=== PATIENT | male | born 1990 | race Caucasian/White ===

== ENCOUNTER 2016-08-16 14:42 | Emergency (ER) | payer MEDICAID, SELFPAY ==
[2016-08-16] MEDS ORDERED: ACETAMINOPHEN 325 MG TAB As Ordered ONE (16:47)
[2016-08-16 17:40] LABS: BASO % 0.6 % (0.0-1.0); EOS # 0.3 K/mm3 (0.0-0.50); EOS % 4.4 % (0.0-3.0); LARGE UNSTAINED CELL # 0.2 K/mm3 (0.0-0.4); LARGE UNSTAINED CELL % 2.4 % (0.0-4.0); LYMPH % 30.3 % (24.0-44.0); MEAN CORPUSCULAR HEMOGLOBIN 28.8 pg (27.0-33.0); MEAN CORPUSCULAR HGB CONC 33.4 g/dl (32.0-36.5); MEAN CORPUSCULAR VOLUME 86.1 fl (80.0-96.0); MONO # 0.5 K/mm3 (0.0-0.8); MONO % 8.2 % (0.0-5.0); NEUTROPHILS # 3.4 K/mm3 (1.8-7.7); NEUTROPHILS % 54.2 % (36.0-66.0); PLATELET COUNT, AUTOMATED 208 k/mm3 (150-450); RED CELL DISTRIBUTION WIDTH 12.3 % (11.5-14.5); WHITE BLOOD COUNT 6.2 K/mm3 (4.0-10.0)
[2016-08-16 17:45] LABS: ANION GAP 7 MEQ/L (8-16); BLOOD UREA NITROGEN 10 MG/DL (7-18); CALCIUM LEVEL 8.6 MG/DL (8.5-10.1); CARBON DIOXIDE LEVEL 31 MEQ/L (21-32); CHLORIDE LEVEL 102 MEQ/L (98-107); CREATININE FOR GFR 0.81 MG/DL (0.70-1.30); GLOMERULAR FILTRATION RATE > 60.0 (>60); GLUCOSE, FASTING 113 MG/DL (70-105); POTASSIUM SERUM 4.2 MEQ/L (3.5-5.1); SODIUM LEVEL 140 MEQ/L (136-145)
--- NOTE | 2016-08-16 18:10 | EDDOCDS ---
Physician Documentation [facility] Name: Ryan Chahal Age: 25 yrs Sex: Male : 1990 Arrival Date: 08/16/2016 Time: 14:42 Bed PD Private MD: NO PRIMARY PHYSICIAN, . Disposition: 08/16/16 17:53 Discharged to Home/Self Care. Impression: Acute upper respiratory infection, unspecified, Dental caries, Nausea and vomiting - viral illness, Diarrhea, unspecified. - Condition is Stable. - Discharge Instructions: Nausea and Vomiting, Upper Respiratory Infection, Adult. - Prescriptions for Amoxicillin 875 mg Oral Tablet - take 1 tablet by ORAL route every 12 hours for 10 days; 20 tablet. ZOFRAN ODT 4 mg Oral - dissolve 1 tablet by ORAL route every 8 hours As needed do not chew, do not swallow whole; 10 tablet. - Medication Reconciliation, Local Pharmacy Hours, Referral List Call for Appointment form. - [facility]; When: Call to arrange an appointment; Reason: Recheck today's complaints, To establish care. Follow up: Emergency Department; When: As needed; Reason: Fever > 102F, Trouble breathing, Worsening of conditions. - Problem is new. - Symptoms have improved. Historical: - Allergies: no known allergies; - Home Meds: 1. none - PMHx: Allergies, Seasonal; - PSHx: skin graft right wrist; - Social history: Smoking status: Patient uses tobacco products, light tobacco smoker. No barriers to communication noted, The patient speaks fluent Liberian. - Family history: Not pertinent. - : The pt / caregiver states he / she is not on anticoagulants. Home medication list is obtained from the patient. - Exposure Risk Screening:: None identified. Vital Signs: 08/16 14:45 BP 137 / 77; Pulse 116; Resp 18 S; Temp 97.8(O); Pulse Ox 98% on R/A; Weight 115.67 kg gr2 / 255.01 lbs (R); Height 5 ft. 10 in. (177.80 cm) (R); Pain 3/10; 16:43 BP 137 / 70; Pulse 81; Resp 22; Temp 101.0(TE); Pulse Ox 96% on R/A; kcs 18:05 BP 148 / 84; Pulse 93; Resp 20; Temp 98.5(O); Pulse Ox 97% ; mk4 14:45 Body Mass Index 36.59 (115.67 kg, 177.80 cm) gr2 MDM: 16:46 Acetaminophen Tablet 975 mg PO once ordered. kcs 17:03 Obtain sample by nasopharyngeal swab ordered. ar2 17:04 CBC with Diff Ordered. EDMS 17:04 MED Profile Ordered. EDMS 17:04 -Influenza A&B Rapid Antigen - Nose Ordered. EDMS 17:31 Financial registration complete. gjb 17:45 CBC with Diff Reviewed. ar2 17:45 -Influenza A&B Rapid Antigen - Nose Reviewed. ar2 17:51 MED Profile Reviewed. ar2 Administered Medications: 16:50 Drug: Acetaminophen 975 mg [acetaminophen 325 mg tablet (3 tabs)] Route: PO; kcs Signatures: Dispatcher [employer] Pamella Roblero RN RN kcs Scott, Debra, RN RN dls Robertshaw, Aaron, PA-C PA-Ce ar2 Pau Moreno RN RN 4 Dee Carrasco [facility] MTDD
--- NOTE | 2016-08-16 18:10 | EDDOCDS ---
Nurse's Notes [facility] Name: Ryan Chahal Age: 25 yrs Sex: Male : 1990 Arrival Date: 08/16/2016 Time: 14:42 Bed PD Private MD: NO PRIMARY PHYSICIAN, . Diagnosis: Acute upper respiratory infection, unspecified;Dental caries;Nausea and vomiting-viral illness;Diarrhea, unspecified Presentation: 08/16 14:48 Presenting complaint: Patient states: Pt presents with headaches vomiting and diarrhea dls body aches x 4 days. Adult Sepsis Screening: The patient does not have new or worsening altered mentation. Patient's respiratory rate is less than 22. Systolic blood pressure is greater than 100. Patient has a qSOFA score of 0- Negative Sepsis Screen. Suicide/Homicide risk assessment- the patient denies having any suicidal and/or homicidal ideations and does not present with any other emotional, behavioral or mental health complaints. Status: Patient is not a service supervisor or dependent. Transition of care: patient was not received from another setting of care. 14:48 Acuity: TU Level 4 dls 14:48 Method Of Arrival: Walkin/Carried/Asstd dls Triage Assessment: 14:50 General: Appears uncomfortable, Behavior is cooperative. Pain: Pain currently is 6 out dls of 10 on a pain scale. HIV screening NA for this visit Offered previously. Historical: - Allergies: no known allergies; - Home Meds: 1. none - PMHx: Allergies, Seasonal; - PSHx: skin graft right wrist; - Social history: Smoking status: Patient uses tobacco products, light tobacco smoker. No barriers to communication noted, The patient speaks fluent Yakut. - Family history: Not pertinent. - : The pt / caregiver states he / she is not on anticoagulants. Home medication list is obtained from the patient. - Exposure Risk Screening:: None identified. Screenin:05 Screening information is obtained from the patient. Fall risk: No risks identified. mk4 Assistance ADL's: requires no assistance with activities of daily living. Abuse/DV Screen: The patient / caregiver reports he/she is: not in a situation that causes fear, pain or injury. Nutritional screening: No deficits noted. Advance Directives: Currently, there is no health care proxy. There is no active DNR order. There is no living will. There is no Power of Area Secretary. Advance directive information has not previously been placed in an [facility] medical record. Further advance directive information is declined. home support is adequate. Assessment: 16:52 Reassessment: when brought into triage room - patient stated he was burning up - kcs patient has wool hat, hoodie and sweatshirt on - told to remove - vital signs repeated and provider notified - order received. Patient states even his arms and legs hurt. Coughing and has been vomiting.. 18:05 Reassessment: Patient states feeling better. Patient states symptoms have improved. mk4 General: Appears in no apparent distress. Respiratory: Airway is patent Respiratory effort is even. Derm: Skin is intact, is healthy with good turgor, Skin is pink, warm & dry. Vital Signs: 14:45 BP 137 / 77; Pulse 116; Resp 18 S; Temp 97.8(O); Pulse Ox 98% on R/A; Weight 115.67 kg gr2 (R); Height 5 ft. 10 in. (177.80 cm) (R); Pain 3/10; 16:43 BP 137 / 70; Pulse 81; Resp 22; Temp 101.0(TE); Pulse Ox 96% on R/A; kcs 18:05 BP 148 / 84; Pulse 93; Resp 20; Temp 98.5(O); Pulse Ox 97% ; mk4 14:45 Body Mass Index 36.59 (115.67 kg, 177.80 cm) gr2 Vitals: 14:45 Log In Time: August 16, 2016 at 14:45. gr2 ED Course: 14:44 Patient visited by Lorenzo Liu. gr2 14:44 NO PRIMARY PHYSICIAN, . is Private Physician. gr2 14:44 Patient moved to Waiting gr2 14:46 Patient visited by Lorenzo Liu. gr2 14:46 Patient moved to Pre RCE gr2 14:49 Triage Initiated dls 16:36 Patient moved to Triage 1 kcs 16:45 Patient visited by Pau Moreno RN. mk4 16:58 Negrito Petersen PA-C is PHCP. ar2 16:58 John Jordan MD is Attending Physician. ar2 16:58 Patient visited by Negrito Petersen PA-C. ar2 17:09 MED Profile Sent. kcs 17:09 CBC with Diff Sent. kcs 17:10 -Influenza A&B Rapid Antigen - Nose Sent. kcs 17:15 Patient moved to ct3 17:51 [facility] is Referral Physician. ar2 18:05 The patient / caregiver is instructed regarding the plan of care and ED course. mk4 18:05 No IV's were initiated during this patient's visit. No procedures done that require mk4 assistance. Administered Medications: 16:50 Drug: Acetaminophen 975 mg [acetaminophen 325 mg tablet (3 tabs)] Route: PO; kcs Order Results: Lab Order: -Influenza A&B Rapid Antigen - Nose; SPEC'M 08/16/16 17:09 Test: INFLUENZA A RAPID SCR by ICA; Value: INFLUENZA A RESULTS NEGATIVE; Status: F Test: INFLUENZA A RAPID SCR by ICA; Value: Comments:; Status: F Test: INFLUENZA B RAPID SCR by ICA; Value: INFLUENZA B RESULTS NEGATIVE; Status: F Test Note: ; The Influenza test is a direct rapid immunoassay for the qualitative detection of Influenza viral antigen. Cell culture (Viral Culture) testing should be considered to confirm NEGATIVE results and to assist in detecting other viruses that can provide similar clinical symptoms. Please contact the lab within 24 hours ([phone]) if confirmatory testing is desired. Lab Order: CBC with Diff; SPEC'M 08/16/16 17:09 Test: WHITE BLOOD COUNT; Value: 6.2; Range: 4.0-10.0; Units: K/mm3; Status: F Test: RED BLOOD COUNT; Value: 5.22; Range: 4.30-6.10; Units: M/mm3; Status: F Test: HEMOGLOBIN; Value: 15.0; Range: 14.0-18.0; Units: g/dl; Status: F Test: HEMATOCRIT; Value: 44.9; Range: 42.0-52.0; Units: %; Status: F Test: MEAN CORPUSCULAR VOLUME; Value: 86.1; Range: 80.0-96.0; Units: fl; Status: F Test: MEAN CORPUSCULAR HEMOGLOBIN; Value: 28.8; Range: 27.0-33.0; Units: pg; Status: F Test: MEAN CORPUSCULAR HGB CONC; Value: 33.4; Range: 32.0-36.5; Units: g/dl; Status: F Test: RED CELL DISTRIBUTION WIDTH; Value: 12.3; Range: 11.5-14.5; Units: %; Status: F Test: PLATELET COUNT, AUTOMATED; Value: 208; Range: 150-450; Units: k/mm3; Status: F Test: NEUTROPHILS %; Value: 54.2; Range: 36.0-66.0; Units: %; Status: F Test: LYMPH %; Value: 30.3; Range: 24.0-44.0; Units: %; Status: F Test: MONO %; Value: 8.2; Range: 0.0-5.0; Abnormal: Above high normal; Units: %; Status: F Test: EOS %; Value: 4.4; Range: 0.0-3.0; Abnormal: Above high normal; Units: %; Status: F Test: BASO %; Value: 0.6; Range: 0.0-1.0; Units: %; Status: F Test: LARGE UNSTAINED CELL %; Value: 2.4; Range: 0.0-4.0; Units: %; Status: F Test: NEUTROPHILS #; Value: 3.4; Range: 1.8-7.7; Units: K/mm3; Status: F Test: LYMPH #; Value: 2.0; Range: 1.5-6.5; Units: K/mm3; Status: F Test: MONO #; Value: 0.5; Range: 0.0-0.8; Units: K/mm3; Status: F Test: EOS #; Value: 0.3; Range: 0.0-0.50; Units: K/mm3; Status: F Test: BASO #; Value: 0.0; Range: 0.0-0.2; Units: K/mm3; Status: F Test: LARGE UNSTAINED CELL #; Value: 0.2; Range: 0.0-0.4; Units: K/mm3; Status: F Lab Order: MED Profile; SPEC'M 08/16/16 17:09 Test: GLUCOSE, FASTING; Value: 113; Range: 70-105; Abnormal: Above high normal; Units: MG/DL; Status: F Test: BLOOD UREA NITROGEN; Value: 10; Range: 7-18; Units: MG/DL; Status: F Test: CREATININE FOR GFR; Value: 0.81; Range: 0.70-1.30; Units: MG/DL; Status: F Test: GLOMERULAR FILTRATION RATE; Value: > 60.0; Range: >60; Status: F Test: SODIUM LEVEL; Value: 140; Range: 136-145; Units: MEQ/L; Status: F Test: POTASSIUM SERUM; Value: 4.2; Range: 3.5-5.1; Units: MEQ/L; Status: F Test: CHLORIDE LEVEL; Value: 102; Range: 98-107; Units: MEQ/L; Status: F Test: CARBON DIOXIDE LEVEL; Value: 31; Range: 21-32; Units: MEQ/L; Status: F Test: ANION GAP; Value: 7; Range: 8-16; Abnormal: Below low normal; Units: MEQ/L; Status: F Test: CALCIUM LEVEL; Value: 8.6; Range: 8.5-10.1; Units: MG/DL; Status: F Test Note: ; Units are mL/min/1.73 m2 Chronic Kidney Disease Staging per NKF: Stage I & II GFR >=60 Normal to Mildly Decreased Stage III GFR 30-59 Moderately Decreased Stage IV GFR 15-29 Severely Decreased Stage V GFR <15 Very Little GFR Left ESRD GFR <15 on APPRENTICE STYLIST Outcome: 17:53 Discharge ordered by Provider. ar2 18:05 Discharge Assessment: Patient awake, alert and oriented x 3. No cognitive and/or mk4 functional deficits noted. Patient verbalized understanding of disposition instructions. Patient awake and alert. patient administered narcotics - no. The following High Risk Discharge criteria are identified: None. Discharged to home ambulatory. Condition: good Condition: stable. No special radiology studies were completed. Property sent home with patient. 18:09 Patient left the ED. mk4 Signatures: Pamella Torres, RN Buffy Malik RN RN dls Robertshaw, Aaron, PA-C PA-C ar2 Melany Smith, DOC LEAD TECHNICIAN ct3 Lorenzo Liu gr2 Pau Moreno RN RN mk4 MTDD
--- NOTE | 2016-08-18 19:10 | EDDOCDS ---
Nurse's Notes [facility] Name: Ryan Chahal Age: 25 yrs Sex: Male : 1990 Arrival Date: 08/16/2016 Time: 14:42 Bed PD Private MD: NO PRIMARY PHYSICIAN, . Diagnosis: Acute upper respiratory infection, unspecified;Dental caries;Nausea and vomiting-viral illness;Diarrhea, unspecified Presentation: 08/16 14:48 Presenting complaint: Patient states: Pt presents with headaches vomiting and diarrhea dls body aches x 4 days. Adult Sepsis Screening: The patient does not have new or worsening altered mentation. Patient's respiratory rate is less than 22. Systolic blood pressure is greater than 100. Patient has a qSOFA score of 0- Negative Sepsis Screen. Suicide/Homicide risk assessment- the patient denies having any suicidal and/or homicidal ideations and does not present with any other emotional, behavioral or mental health complaints. Status: Patient is not a service coordinator or dependent. Transition of care: patient was not received from another setting of care. 14:48 Acuity: TU Level 4 dls 14:48 Method Of Arrival: Walkin/Carried/Asstd dls Triage Assessment: 14:50 General: Appears uncomfortable, Behavior is cooperative. Pain: Pain currently is 6 out dls of 10 on a pain scale. HIV screening NA for this visit Offered previously. Historical: - Allergies: no known allergies; - Home Meds: 1. none - PMHx: Allergies, Seasonal; - PSHx: skin graft right wrist; - Social history: Smoking status: Patient uses tobacco products, light tobacco smoker. No barriers to communication noted, The patient speaks fluent Maori. - Family history: Not pertinent. - : The pt / caregiver states he / she is not on anticoagulants. Home medication list is obtained from the patient. - Exposure Risk Screening:: None identified. Screenin:05 Screening information is obtained from the patient. Fall risk: No risks identified. mk4 Assistance ADL's: requires no assistance with activities of daily living. Abuse/DV Screen: The patient / caregiver reports he/she is: not in a situation that causes fear, pain or injury. Nutritional screening: No deficits noted. Advance Directives: Currently, there is no health care proxy. There is no active DNR order. There is no living will. There is no Power of Aitchbone Breaker. Advance directive information has not previously been placed in an [facility] medical record. Further advance directive information is declined. home support is adequate. Assessment: 16:52 Reassessment: when brought into triage room - patient stated he was burning up - kcs patient has wool hat, hoodie and sweatshirt on - told to remove - vital signs repeated and provider notified - order received. Patient states even his arms and legs hurt. Coughing and has been vomiting.. 18:05 Reassessment: Patient states feeling better. Patient states symptoms have improved. mk4 General: Appears in no apparent distress. Respiratory: Airway is patent Respiratory effort is even. Derm: Skin is intact, is healthy with good turgor, Skin is pink, warm & dry. Vital Signs: 14:45 BP 137 / 77; Pulse 116; Resp 18 S; Temp 97.8(O); Pulse Ox 98% on R/A; Weight 115.67 kg gr2 (R); Height 5 ft. 10 in. (177.80 cm) (R); Pain 3/10; 16:43 BP 137 / 70; Pulse 81; Resp 22; Temp 101.0(TE); Pulse Ox 96% on R/A; kcs 18:05 BP 148 / 84; Pulse 93; Resp 20; Temp 98.5(O); Pulse Ox 97% ; mk4 14:45 Body Mass Index 36.59 (115.67 kg, 177.80 cm) gr2 Vitals: 14:45 Log In Time: August 16, 2016 at 14:45. gr2 ED Course: 14:44 Patient visited by Lorenzo Liu. gr2 14:44 NO PRIMARY PHYSICIAN, . is Private Physician. gr2 14:44 Patient moved to Waiting gr2 14:46 Patient visited by Lorenzo Liu. gr2 14:46 Patient moved to Pre RCE gr2 14:49 Triage Initiated dls 16:36 Patient moved to Triage 1 kcs 16:45 Patient visited by Pau Moreno RN. mk4 16:58 Negrito Petersen PA-C is PHCP. ar2 16:58 John Jordan MD is Attending Physician. ar2 16:58 Patient visited by Negrito Petersen PA-C. ar2 17:09 MED Profile Sent. kcs 17:09 CBC with Diff Sent. kcs 17:10 -Influenza A&B Rapid Antigen - Nose Sent. kcs 17:15 Patient moved to PD ct3 17:51 [facility] is Referral Physician. ar2 18:05 The patient / caregiver is instructed regarding the plan of care and ED course. mk4 18:05 No IV's were initiated during this patient's visit. No procedures done that require mk4 assistance. 18:22 [facility] Payment Agreement was scanned into [employer] and attached to record. gjb 08/17 14:05 T-Sheet-- Draft Copy was scanned into [employer] and attached to record. gb Administered Medications: 08/16 16:50 Drug: Acetaminophen 975 mg [acetaminophen 325 mg tablet (3 tabs)] Route: PO; kcs 18:09 Follow up: Response: Pain is decreased; Temperature is decreased mk4 Order Results: Lab Order: -Influenza A&B Rapid Antigen - Nose; SPEC'M 08/16/16 17:09 Test: INFLUENZA A RAPID SCR by ICA; Value: INFLUENZA A RESULTS NEGATIVE; Status: F Test: INFLUENZA A RAPID SCR by ICA; Value: Comments:; Status: F Test: INFLUENZA B RAPID SCR by ICA; Value: INFLUENZA B RESULTS NEGATIVE; Status: F Test Note: ; The Influenza test is a direct rapid immunoassay for the qualitative detection of Influenza viral antigen. Cell culture (Viral Culture) testing should be considered to confirm NEGATIVE results and to assist in detecting other viruses that can provide similar clinical symptoms. Please contact the lab within 24 hours ([phone]) if confirmatory testing is desired. Lab Order: CBC with Diff; SPEC'M 08/16/16 17:09 Test: WHITE BLOOD COUNT; Value: 6.2; Range: 4.0-10.0; Units: K/mm3; Status: F Test: RED BLOOD COUNT; Value: 5.22; Range: 4.30-6.10; Units: M/mm3; Status: F Test: HEMOGLOBIN; Value: 15.0; Range: 14.0-18.0; Units: g/dl; Status: F Test: HEMATOCRIT; Value: 44.9; Range: 42.0-52.0; Units: %; Status: F Test: MEAN CORPUSCULAR VOLUME; Value: 86.1; Range: 80.0-96.0; Units: fl; Status: F Test: MEAN CORPUSCULAR HEMOGLOBIN; Value: 28.8; Range: 27.0-33.0; Units: pg; Status: F Test: MEAN CORPUSCULAR HGB CONC; Value: 33.4; Range: 32.0-36.5; Units: g/dl; Status: F Test: RED CELL DISTRIBUTION WIDTH; Value: 12.3; Range: 11.5-14.5; Units: %; Status: F Test: PLATELET COUNT, AUTOMATED; Value: 208; Range: 150-450; Units: k/mm3; Status: F Test: NEUTROPHILS %; Value: 54.2; Range: 36.0-66.0; Units: %; Status: F Test: LYMPH %; Value: 30.3; Range: 24.0-44.0; Units: %; Status: F Test: MONO %; Value: 8.2; Range: 0.0-5.0; Abnormal: Above high normal; Units: %; Status: F Test: EOS %; Value: 4.4; Range: 0.0-3.0; Abnormal: Above high normal; Units: %; Status: F Test: BASO %; Value: 0.6; Range: 0.0-1.0; Units: %; Status: F Test: LARGE UNSTAINED CELL %; Value: 2.4; Range: 0.0-4.0; Units: %; Status: F Test: NEUTROPHILS #; Value: 3.4; Range: 1.8-7.7; Units: K/mm3; Status: F Test: LYMPH #; Value: 2.0; Range: 1.5-6.5; Units: K/mm3; Status: F Test: MONO #; Value: 0.5; Range: 0.0-0.8; Units: K/mm3; Status: F Test: EOS #; Value: 0.3; Range: 0.0-0.50; Units: K/mm3; Status: F Test: BASO #; Value: 0.0; Range: 0.0-0.2; Units: K/mm3; Status: F Test: LARGE UNSTAINED CELL #; Value: 0.2; Range: 0.0-0.4; Units: K/mm3; Status: F Lab Order: MED Profile; TASHA 08/16/16 17:09 Test: GLUCOSE, FASTING; Value: 113; Range: 70-105; Abnormal: Above high normal; Units: MG/DL; Status: F Test: BLOOD UREA NITROGEN; Value: 10; Range: 7-18; Units: MG/DL; Status: F Test: CREATININE FOR GFR; Value: 0.81; Range: 0.70-1.30; Units: MG/DL; Status: F Test: GLOMERULAR FILTRATION RATE; Value: > 60.0; Range: >60; Status: F Test: SODIUM LEVEL; Value: 140; Range: 136-145; Units: MEQ/L; Status: F Test: POTASSIUM SERUM; Value: 4.2; Range: 3.5-5.1; Units: MEQ/L; Status: F Test: CHLORIDE LEVEL; Value: 102; Range: 98-107; Units: MEQ/L; Status: F Test: CARBON DIOXIDE LEVEL; Value: 31; Range: 21-32; Units: MEQ/L; Status: F Test: ANION GAP; Value: 7; Range: 8-16; Abnormal: Below low normal; Units: MEQ/L; Status: F Test: CALCIUM LEVEL; Value: 8.6; Range: 8.5-10.1; Units: MG/DL; Status: F Test Note: ; Units are mL/min/1.73 m2 Chronic Kidney Disease Staging per NKF: Stage I & II GFR >=60 Normal to Mildly Decreased Stage III GFR 30-59 Moderately Decreased Stage IV GFR 15-29 Severely Decreased Stage V GFR <15 Very Little GFR Left ESRD GFR <15 on STATOR WINDER Outcome: 17:53 Discharge ordered by Provider. ar2 18:05 Discharge Assessment: Patient awake, alert and oriented x 3. No cognitive and/or mk4 functional deficits noted. Patient verbalized understanding of disposition instructions. Patient awake and alert. patient administered narcotics - no. The following High Risk Discharge criteria are identified: None. Discharged to home ambulatory. Condition: good Condition: stable. No special radiology studies were completed. Property sent home with patient. 18:09 Patient left the ED. mk4 Signatures: Pamella Torres RN RN kcs Scott, Debra, RN RN dls Barnhardt, Gloria, Negrito Watt PASeverino PA-C ar2 Melany Smith, HVAC JOURNEYMAN HVAC JOURNEYMAN ct3 Lorenzo Liu gr2 Pau Moreno, RN RN mk4 Dee Carrasco Chart Complete MTDD
--- NOTE | 2016-08-18 19:10 | EDDOCDS ---
Physician Documentation [facility] Name: Ryan Chahal Age: 25 yrs Sex: Male : 1990 Arrival Date: 08/16/2016 Time: 14:42 Bed PD Private MD: NO PRIMARY PHYSICIAN, . Disposition: 08/16/16 17:53 Discharged to Home/Self Care. Impression: Acute upper respiratory infection, unspecified, Dental caries, Nausea and vomiting - viral illness, Diarrhea, unspecified. - Condition is Stable. - Discharge Instructions: Nausea and Vomiting, Upper Respiratory Infection, Adult. - Prescriptions for Amoxicillin 875 mg Oral Tablet - take 1 tablet by ORAL route every 12 hours for 10 days; 20 tablet. ZOFRAN ODT 4 mg Oral - dissolve 1 tablet by ORAL route every 8 hours As needed do not chew, do not swallow whole; 10 tablet. - Medication Reconciliation, Local Pharmacy Hours, Referral List Call for Appointment form. - [facility]; When: Call to arrange an appointment; Reason: Recheck today's complaints, To establish care. Follow up: Emergency Department; When: As needed; Reason: Fever > 102F, Trouble breathing, Worsening of conditions. - Problem is new. - Symptoms have improved. Historical: - Allergies: no known allergies; - Home Meds: 1. none - PMHx: Allergies, Seasonal; - PSHx: skin graft right wrist; - Social history: Smoking status: Patient uses tobacco products, light tobacco smoker. No barriers to communication noted, The patient speaks fluent Guamanian. - Family history: Not pertinent. - : The pt / caregiver states he / she is not on anticoagulants. Home medication list is obtained from the patient. - Exposure Risk Screening:: None identified. Vital Signs: 08/16 14:45 BP 137 / 77; Pulse 116; Resp 18 S; Temp 97.8(O); Pulse Ox 98% on R/A; Weight 115.67 kg gr2 / 255.01 lbs (R); Height 5 ft. 10 in. (177.80 cm) (R); Pain 3/10; 16:43 BP 137 / 70; Pulse 81; Resp 22; Temp 101.0(TE); Pulse Ox 96% on R/A; kcs 18:05 BP 148 / 84; Pulse 93; Resp 20; Temp 98.5(O); Pulse Ox 97% ; mk4 14:45 Body Mass Index 36.59 (115.67 kg, 177.80 cm) gr2 MDM: 16:46 Acetaminophen Tablet 975 mg PO once ordered. kcs 17:03 Obtain sample by nasopharyngeal swab ordered. ar2 17:04 CBC with Diff Ordered. EDMS 17:04 MED Profile Ordered. EDMS 17:04 -Influenza A&B Rapid Antigen - Nose Ordered. EDMS 17:31 Financial registration complete. gjb 17:45 CBC with Diff Reviewed. ar2 17:45 -Influenza A&B Rapid Antigen - Nose Reviewed. ar2 17:51 MED Profile Reviewed. ar2 18:22 [facility] Payment Agreement was scanned into [employer] and attached to record. [facility] 08/17 14:05 T-Sheet-- Draft Copy was scanned into [employer] and attached to record. gb Administered Medications: 08/16 16:50 Drug: Acetaminophen 975 mg [acetaminophen 325 mg tablet (3 tabs)] Route: PO; kcs 18:09 Follow up: Response: Pain is decreased; Temperature is decreased mk4 Signatures: Dispatcher [employer] EDMS Pamella Torres RN RN Buffy Burton RN RN dls Nahomy Melchor, Reg Reg Negrito Mejia PA-C PASeverino ar2 Pau Moreno RN RN Dee Hooks The chart was reviewed and I authenticate all verbal orders and agree with the evaluation and treatment provided.Attachments: 18: [facility] Payment Agreement [facility] 08/17 14:05 T-Sheet-- Draft Copy gb Chart Complete MTDD
--- NOTE | 2016-08-18 19:10 | EDDOCDS ---
Physician Documentation [facility] Name: Ryan Chahal Age: 25 yrs Sex: Male : 1990 Arrival Date: 08/16/2016 Time: 14:42 Bed PD Private MD: NO PRIMARY PHYSICIAN, . Disposition: 08/16/16 17:53 Discharged to Home/Self Care. Impression: Acute upper respiratory infection, unspecified, Dental caries, Nausea and vomiting - viral illness, Diarrhea, unspecified. - Condition is Stable. - Discharge Instructions: Nausea and Vomiting, Upper Respiratory Infection, Adult. - Prescriptions for Amoxicillin 875 mg Oral Tablet - take 1 tablet by ORAL route every 12 hours for 10 days; 20 tablet. ZOFRAN ODT 4 mg Oral - dissolve 1 tablet by ORAL route every 8 hours As needed do not chew, do not swallow whole; 10 tablet. - Medication Reconciliation, Local Pharmacy Hours, Referral List Call for Appointment form. - [facility]; When: Call to arrange an appointment; Reason: Recheck today's complaints, To establish care. Follow up: Emergency Department; When: As needed; Reason: Fever > 102F, Trouble breathing, Worsening of conditions. - Problem is new. - Symptoms have improved. Historical: - Allergies: no known allergies; - Home Meds: 1. none - PMHx: Allergies, Seasonal; - PSHx: skin graft right wrist; - Social history: Smoking status: Patient uses tobacco products, light tobacco smoker. No barriers to communication noted, The patient speaks fluent Marshallese. - Family history: Not pertinent. - : The pt / caregiver states he / she is not on anticoagulants. Home medication list is obtained from the patient. - Exposure Risk Screening:: None identified. Vital Signs: 08/16 14:45 BP 137 / 77; Pulse 116; Resp 18 S; Temp 97.8(O); Pulse Ox 98% on R/A; Weight 115.67 kg gr2 / 255.01 lbs (R); Height 5 ft. 10 in. (177.80 cm) (R); Pain 3/10; 16:43 BP 137 / 70; Pulse 81; Resp 22; Temp 101.0(TE); Pulse Ox 96% on R/A; kcs 18:05 BP 148 / 84; Pulse 93; Resp 20; Temp 98.5(O); Pulse Ox 97% ; mk4 14:45 Body Mass Index 36.59 (115.67 kg, 177.80 cm) gr2 MDM: 16:46 Acetaminophen Tablet 975 mg PO once ordered. kcs 17:03 Obtain sample by nasopharyngeal swab ordered. ar2 17:04 CBC with Diff Ordered. EDMS 17:04 MED Profile Ordered. EDMS 17:04 -Influenza A&B Rapid Antigen - Nose Ordered. EDMS 17:31 Financial registration complete. gjb 17:45 CBC with Diff Reviewed. ar2 17:45 -Influenza A&B Rapid Antigen - Nose Reviewed. ar2 17:51 MED Profile Reviewed. ar2 18:22 [facility] Payment Agreement was scanned into [employer] and attached to record. [facility] 08/17 14:05 T-Sheet-- Draft Copy was scanned into [employer] and attached to record. gb Administered Medications: 08/16 16:50 Drug: Acetaminophen 975 mg [acetaminophen 325 mg tablet (3 tabs)] Route: PO; kcs 18:09 Follow up: Response: Pain is decreased; Temperature is decreased mk4 Signatures: Dispatcher [employer] EDMS Pamella Torres RN RN Buffy Burton RN RN dls Nahomy Melchor, Reg Reg Negrito Mejia PA-C PASeverino ar2 Pau Moreno RN RN Dee Hooks The chart was reviewed and I authenticate all verbal orders and agree with the evaluation and treatment provided.Attachments: 18: [facility] Payment Agreement [facility] 08/17 14:05 T-Sheet-- Draft Copy gb Chart Complete MTDD
== END 2016-08-16 18:09 | disposition home or self-care (01) ==
LOC: M ED 14:42
DX: B34.9 Viral infection, unspecified (principal); R11.2 Nausea with vomiting, unspecified; K02.9 Dental caries, unspecified; R19.7 Diarrhea, unspecified; J30.2 Other seasonal allergic rhinitis; F17.210 Nicotine dependence, cigarettes, uncomplicated

== ENCOUNTER 2017-05-22 08:55 | Emergency (ER) | payer SELFPAY ==
[~2017-05-22] VITALS: Ht 177.8 cm; Wt 120.5 kg
[~2017-05-22 08:55] MED LIST: IBUP80TA PO
[2017-05-22] MEDS ORDERED: NS 1,000 ML IV ONE (09:30)
[2017-05-22] MEDS ORDERED: METOCLOPRAMIDE INJ 10MG/2ML VIAL (J2765) IV ONE (09:30)
[2017-05-22] MEDS ORDERED: KETOROLAC 30 MG/ML VIAL (J1885) IV ONE (09:30)
[2017-05-22] MEDS ORDERED: diphenhydrAMINE INJ 50MG/ML VIAL (J1200) IV ONE (09:30)
[2017-05-22] MEDS ORDERED: PENICILLIN V POTASSIUM 500 MG TAB PO ONE (10:45)
[2017-05-22] MEDS ORDERED: PENI250T57 PO (10:53)
[2017-05-22 11:00] VITALS: BP 131/72
== END 2017-05-22 11:01 | disposition home or self-care (01) ==
LOC: M ED 08:55
DX: J02.0 Streptococcal pharyngitis (principal)
CPT/HCPCS: 87804; 87880; 96361; 96374; 96375; 99284; J1200; J1885; J2765

== ENCOUNTER 2017-05-24 09:55 | Emergency (ER) | payer SELFPAY ==
[~2017-05-24] VITALS: Ht 177.8 cm; Wt 116.8 kg
[2017-05-24 09:55] VITALS: BP 140/76
[~2017-05-24 09:55] MED LIST changes: +PENI250T57 PO
[2017-05-24] MEDS ORDERED: ZOFR4TAB3 PO (11:25)
[2017-05-24] MEDS ORDERED: ONDANSETRON 4 MG ORAL DISINTEGRATING TAB (S0181) PO ONE (11:30)
== END 2017-05-24 11:40 | disposition home or self-care (01) ==
LOC: M ED 09:55
DX: R11.0 Nausea (principal); Z87.891 Personal history of nicotine dependence

== ENCOUNTER 2017-06-01 18:38 | Emergency (ER) | payer SELFPAY ==
[~2017-06-01] VITALS: Ht 177.8 cm; Wt 120.5 kg
[~2017-06-01 18:38] MED LIST changes: +ZOFR4TAB3 PO
[2017-06-01] MEDS ORDERED: NS 1,000 ML IV ONE (19:00)
[2017-06-01 19:17] LABS: BASO # 0.1 10^3/uL (0.0-0.2); BASO % 0.6 % (0.0-1.0); EOS # 0.4 10^3/uL (0.0-0.50); EOS % 3.6 % (0.0-3.0); LYMPH # 2.9 10^3/uL (1.5-6.5); LYMPH % 28.4 % (24.0-44.0); MEAN CORPUSCULAR HEMOGLOBIN 28.6 pg (27.0-33.0); MEAN CORPUSCULAR HGB CONC 33.6 g/dl (32.0-36.5); MEAN CORPUSCULAR VOLUME 85.3 fl (80.0-96.0); MONO # 0.9 10^3/uL (0.0-0.8); MONO % 9.3 % (0.0-5.0); NEUTROPHILS # 5.8 10^3/uL (1.8-7.7); NEUTROPHILS % 57.1 % (36.0-66.0); PLATELET COUNT, AUTOMATED 558 10^3/uL (150-450); WHITE BLOOD COUNT 10.2 10^3/uL (4.0-10.0)
[2017-06-01 19:19] LABS: VENOUS BASE EXCESS 2.4 (-2.0-2.0); VENOUS O2 SATURATION 49.1 % (60.0-80.0); VENOUS PARTIAL PRESSURE CO2 51.9 mmHg (38.0-50.0); VENOUS PARTIAL PRESSURE O2 27.9 mmHg (30.0-50.0); VENOUS STANDARD HCO3 25.2 MEQ/L; VENOUS TOTAL CO2 30.6 MEQ/L (24.0-28.0)
--- NOTE | 2017-06-01 19:21 | REP ---
Clinical: Cough and dyspnea . Comparison: 05/10/2017 . Findings: The mediastinum and cardiac silhouette are stable and within normal limits for portable technique. The lung devi are clear without acute consolidation, effusion, or pneumothorax. Skeletal structures are intact. Impression: No acute cardiopulmonary process appreciated. Signed by Yosi Owens MD 06/01/2017 07:12 P
[2017-06-01 19:27] LABS: ADD MORPHOLOGY? YES; POSITIVE MORPH POS FLAG
[2017-06-01 19:48] LABS: ALBUMIN 3.4 GM/DL (3.2-5.2); ALBUMIN/GLOBULIN RATIO 0.67 (1.00-1.93); ALKALINE PHOSPHATASE 113 U/L (45-117); ALT/SGPT 32 U/L (12-78); ANION GAP 6 MEQ/L (8-16); AST/SGOT 17 U/L (7-37); BILIRUBIN,DIRECT 0.1 MG/DL (0.0-0.2); BILIRUBIN,TOTAL 0.4 MG/DL (0.2-1.0); BLOOD UREA NITROGEN 18 MG/DL (7-18); CALCIUM LEVEL 9.2 MG/DL (8.5-10.1); CARBON DIOXIDE LEVEL 31 MEQ/L (21-32); CHLORIDE LEVEL 101 MEQ/L (98-107); CREATININE FOR GFR 1.08 MG/DL (0.70-1.30); GLOMERULAR FILTRATION RATE > 60.0 (>60); GLUCOSE, FASTING 112 MG/DL (70-105); POTASSIUM SERUM 3.6 MEQ/L (3.5-5.1); SODIUM LEVEL 138 MEQ/L (136-145); TOTAL PROTEIN 8.5 GM/DL (6.4-8.2)
[2017-06-01] MEDS ORDERED: ALBUTEROL SULFATE 2.5 MG/0.5 ML INH NEB SOLN INH ONE (20:15)
[2017-06-01 20:17] LABS: BASOPHILS 1 % (0-4); EOSINOPHILS 2 % (0-5)
[2017-06-01 20:19] LABS: ADD MANUAL DIFFER YES
[2017-06-01 20:39] LABS: CONTROL LINE MONO INT CTR LINE PRESENT
--- NOTE | 2017-06-01 20:48 | ECGEPIP ---
Stationary ECG Study [facility] - ED Test Date: 2017-06-01 Pat Name: ADE SOMERS Department: Room: - Gender: M Triage Assistant: lit : 1990 Requested By: TROY Ley Order Number: [id number] Reading MD: Estrella Gaming Measurements Intervals [place] Rate: 123 P: 51 FL: 145 QRS: 44 QRSD: 90 T: 31 QT: 303 QTc: 435 Interpretive Statements SINUS TACHYCARDIA ABNORMAL RHYTHM ECG NO PRIOR FOR COMPARISON Electronically Signed On 06-01-2017 20:48:14 EST by Estrella Gaming
[2017-06-01 21:04] VITALS: BP 138/85
== END 2017-06-01 21:11 | disposition home or self-care (01) ==
LOC: M ED 18:38
DX: J02.0 Streptococcal pharyngitis (principal); R00.0 Tachycardia, unspecified; R94.31 Abnormal electrocardiogram [ECG] [EKG]

== ENCOUNTER 2018-12-21 15:08 | Emergency (ER) | payer SELFPAY ==
[~2018-12-21] VITALS: Ht 177.8 cm; Wt 135.2 kg
[~2018-12-21 15:08] MED LIST changes: +ZOFR4TAB14 PO; -ZOFR4TAB3 PO
[2018-12-21 15:09] VITALS: BP 132/80
[2018-12-21] MEDS ORDERED: AUGM875T28 PO (15:41)
[2018-12-21] MEDS ORDERED: IBUP-1022 PO (15:41)
== END 2018-12-21 15:48 | disposition home or self-care (01) ==
LOC: M ED 15:08
DX: K02.51 Dental caries on pit and fissure surface limited to enamel (principal); K04.7 Periapical abscess without sinus; Z87.891 Personal history of nicotine dependence

== ENCOUNTER → 2020-05-07 | Outpatient (CLI) | payer OTHER ==
[~2020-05-07] MED LIST changes: +AUGM875T28 PO; +IBUP-1022 PO
[2020-05-07 15:54] LABS: BASO # 0.1 10^3/uL (0.0-0.2); BASO % 0.6 % (0.0-1.0); EOS # 0.4 10^3/uL (0.0-0.5); EOS % 3.8 % (0.0-3.0); HEMATOCRIT 44.5 % (42.0-52.0); HEMOGLOBIN 14.3 g/dl (13.5-17.5); LYMPH # 3.2 10^3/uL (1.5-5.0); LYMPH % 33.6 % (24.0-44.0); MEAN CORPUSCULAR HEMOGLOBIN 27.7 pg (27.0-33.0); MEAN CORPUSCULAR HGB CONC 32.1 g/dl (32.0-36.5); MEAN CORPUSCULAR VOLUME 86.1 fl (80.0-96.0); MONO # 0.8 10^3/uL (0.0-0.8); MONO % 8.3 % (0.0-5.0); NEUTROPHILS # 5.1 10^3/uL (1.5-8.5); NEUTROPHILS % 53.3 % (36.0-66.0); PLATELET COUNT, AUTOMATED 370 10^3/uL (150-450); RED BLOOD COUNT 5.17 10^6/uL (4.30-6.10); WHITE BLOOD COUNT 9.5 10^3/uL (4.0-10.0)
--- NOTE | 2020-05-07 17:01 | REPPI ---
INDICATION: KNEE PAIN. COMPARISON: None. TECHNIQUE: Five views. FINDINGS: Five views of the left knee demonstrate normal bones, joints, and soft tissues. No fracture or subluxation is seen. No opaque foreign body noted. IMPRESSION: Negative left knee series. <Electronically signed by Bryan Batres > 05/07/20 [id number]
[2020-05-07 19:57] LABS: ALBUMIN 3.6 GM/DL (3.2-5.2); ALT/SGPT 29 U/L (12-78); BILIRUBIN,TOTAL 0.3 MG/DL (0.2-1.0); BLOOD UREA NITROGEN 8 MG/DL (7-18); CALCIUM LEVEL 9.1 MG/DL (8.5-10.1); CARBON DIOXIDE LEVEL 29 MEQ/L (21-32); CHLORIDE LEVEL 110 MEQ/L (98-107); CHOLESTEROL LEVEL 168 MG/DL (<200); CHOLESTEROL RISK RATIO 4.097 (<5); CREATININE FOR GFR 0.85 MG/DL (0.70-1.30); FREE T4 1.15 NG/DL (0.76-1.46); GLOMERULAR FILTRATION RATE > 60.0 (>60); GLUCOSE, FASTING 78 MG/DL (70-100); HDL CHOLESTEROL 41 MG/DL (>40); LDL CHOLESTEROL 85 MG/DL (<100); NON-HDL-C 127 MG/DL; SODIUM LEVEL 145 MEQ/L (136-145); TOTAL PROTEIN 6.9 GM/DL (6.4-8.2); TRIGLYCERIDES LEVEL 210 MG/DL (<150)
[2020-05-07 20:48] LABS: HEMOGLOBIN A1c 6.1 %
== END ==
LOC: M PLAIMG 12:44
PROVIDERS: ATTEND Nurse Practitioner Family
DX: I10 Essential (primary) hypertension (principal); Z13.228 Encounter for screening for other metabolic disorders; Z13.220 Encounter for screening for lipoid disorders; M25.562 Pain in left knee

== ENCOUNTER 2020-09-18 16:43 | Emergency (ER) | payer OTHER ==
[~2020-09-18] VITALS: Ht 177.8 cm; Wt 136.1 kg
[2020-09-18] MEDS ORDERED: LISI10TA22 (16:50)
--- NOTE | 2020-09-18 17:36 | REP ---
INDICATION: CHEST PAIN. COMPARISON: Comparison chest x-ray June 01, 2017. TECHNIQUE: Two views.. FINDINGS: The lungs are well inflated and free of infiltrate. The pleural angles are sharp. The heart size is normal. Pulmonary vasculature is not increased. No significant bony abnormality is seen. EKG monitoring electrodes overlie the chest. IMPRESSION: Negative chest x-ray. <Electronically signed by Bryan Batres > 09/18/20 [id number]
[2020-09-18 17:39] LABS: BASO # 0.1 10^3/uL (0.0-0.2); BASO % 0.5 % (0.0-1.0); EOS # 0.3 10^3/uL (0.0-0.5); HEMATOCRIT 43.6 % (42.0-52.0); HEMOGLOBIN 14.2 g/dl (13.5-17.5); LYMPH # 3.1 10^3/uL (1.5-5.0); LYMPH % 29.3 % (24.0-44.0); MEAN CORPUSCULAR HEMOGLOBIN 28.1 pg (27.0-33.0); MEAN CORPUSCULAR HGB CONC 32.6 g/dl (32.0-36.5); MEAN CORPUSCULAR VOLUME 86.3 fl (80.0-96.0); MONO # 0.9 10^3/uL (0.0-0.8); MONO % 8.6 % (2.0-8.0); NEUTROPHILS # 6.2 10^3/uL (1.5-8.5); NEUTROPHILS % 58.1 % (36.0-66.0); PLATELET COUNT, AUTOMATED 360 10^3/uL (150-450); RED BLOOD COUNT 5.05 10^6/uL (4.30-6.10); WHITE BLOOD COUNT 10.7 10^3/uL (4.0-10.0)
[2020-09-18 17:48] LABS: INR 0.91; PROTHROMBIN TIME 12.5 SECONDS (12.5-14.3)
[2020-09-18 17:49] LABS: PARTIAL THROMBOPLASTIN TIME 28.8 SECONDS (24.2-38.5)
[2020-09-18 17:52] LABS: D-DIMER QUANT 350.99 ng/ml (<500)
[2020-09-18 18:09] LABS: ALBUMIN 3.9 GM/DL (3.2-5.2); ALT/SGPT 32 U/L (12-78); BILIRUBIN,DIRECT 0.1 MG/DL (0.0-0.2); BILIRUBIN,TOTAL 0.3 MG/DL (0.2-1.0); BLOOD UREA NITROGEN 12 MG/DL (7-18); CALCIUM LEVEL 9.6 MG/DL (8.5-10.1); CARBON DIOXIDE LEVEL 31 MEQ/L (21-32); CHLORIDE LEVEL 104 MEQ/L (98-107); CK-MB VALUE MASS < 1.0 NG/ML (<3.6); CPK CREATINE PHOSPHOKINASE 187 U/L (39-308); CREATININE FOR GFR 0.71 MG/DL (0.70-1.30); FREE T4 0.97 NG/DL (0.76-1.46); GLOMERULAR FILTRATION RATE > 60.0 (>60); GLUCOSE, FASTING 101 MG/DL (70-100); LIPASE 171 U/L (73-393); MAGNESIUM LEVEL 1.9 MG/DL (1.8-2.4); MB/CK RELATIVE INDEX 0.53 (< OR =4); PHOSPHORUS LEVEL 3.7 MG/DL (2.5-4.9); POTASSIUM SERUM 3.6 MEQ/L (3.5-5.1); SODIUM LEVEL 140 MEQ/L (136-145); TOTAL PROTEIN 7.6 GM/DL (6.4-8.2); TROPONIN I < 0.02 NG/ML (< 0.10)
[2020-09-18 18:29] VITALS: BP 154/89
--- NOTE | 2020-09-19 07:31 | ECGEPIP ---
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
== END 2020-09-18 18:39 | disposition home or self-care (01) ==
LOC: M ED 16:43
DX: R00.2 Palpitations (principal); R00.0 Tachycardia, unspecified; I10 Essential (primary) hypertension; F17.200 Nicotine dependence, unspecified, uncomplicated; Z79.899 Other long term (current) drug therapy

== ENCOUNTER 2020-10-19 19:03 | Emergency (ER) | payer OTHER ==
[~2020-10-19] VITALS: Ht 177.8 cm; Wt 137.2 kg
[~2020-10-19 19:03] MED LIST changes: +LISI10TA22
[2020-10-19] MEDS ORDERED: ALBU8.5H PO (19:14)
--- NOTE | 2020-10-19 20:29 | REPVR ---
PROCEDURE INFORMATION: Exam: XR Chest Exam date and time: 10/19/2020 8:14 PM Age: 30 years old Clinical indication: Cough and dyspnea; Additional info: Dyspnea/cough TECHNIQUE: Imaging protocol: XR of the chest. Views: 1 view. COMPARISON: [place] PORTABLE CHEST X-RAY 06/01/2017 7:03 PM FINDINGS: Lungs: Unremarkable. No consolidation. Pleural spaces: Unremarkable. No pleural effusion. No pneumothorax. Heart/Mediastinum: Unremarkable. No cardiomegaly. Bones/joints: Unremarkable. IMPRESSION: No acute findings. Electronically signed by: Ulysses Nolasco On 10/19/2020 20:29:49 PM
[2020-10-19 20:30] LABS: BASO # 0.1 10^3/uL (0.0-0.2); BASO % 0.5 % (0.0-1.0); EOS # 0.4 10^3/uL (0.0-0.5); EOS % 3.5 % (0.0-3.0); HEMOGLOBIN 14.3 g/dl (13.5-17.5); LYMPH # 3.6 10^3/uL (1.5-5.0); LYMPH % 31.6 % (24.0-44.0); MEAN CORPUSCULAR HEMOGLOBIN 28.1 pg (27.0-33.0); MEAN CORPUSCULAR HGB CONC 33.3 g/dl (32.0-36.5); MEAN CORPUSCULAR VOLUME 84.6 fl (80.0-96.0); MONO % 8.4 % (2.0-8.0); NEUTROPHILS # 6.3 10^3/uL (1.5-8.5); NEUTROPHILS % 55.4 % (36.0-66.0); PLATELET COUNT, AUTOMATED 311 10^3/uL (150-450); RED BLOOD COUNT 5.08 10^6/uL (4.30-6.10); WHITE BLOOD COUNT 11.3 10^3/uL (4.0-10.0)
[2020-10-19 20:44] LABS: ALBUMIN 3.8 GM/DL (3.2-5.2); ALT/SGPT 32 U/L (12-78); BILIRUBIN,DIRECT < 0.1 MG/DL (0.0-0.2); BILIRUBIN,TOTAL 0.3 MG/DL (0.2-1.0); BLOOD UREA NITROGEN 12 MG/DL (7-18); CALCIUM LEVEL 9.2 MG/DL (8.5-10.1); CARBON DIOXIDE LEVEL 30 MEQ/L (21-32); CHLORIDE LEVEL 105 MEQ/L (98-107); CREATININE FOR GFR 0.67 MG/DL (0.70-1.30); GLOMERULAR FILTRATION RATE > 60.0 (>60); GLUCOSE, FASTING 122 MG/DL (70-100); POTASSIUM SERUM 3.6 MEQ/L (3.5-5.1); SODIUM LEVEL 141 MEQ/L (136-145); TOTAL PROTEIN 7.5 GM/DL (6.4-8.2)
[2020-10-19] MEDS ORDERED: CETI10CA2 PO (21:52)
[2020-10-19] MEDS ORDERED: FLON1SPR NARES (21:52)
[2020-10-19 21:59] VITALS: BP 179/113
--- NOTE | 2020-10-20 15:28 | ECGEPIP ---
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
== END 2020-10-19 22:17 | disposition home or self-care (01) ==
LOC: M ED 19:03
DX: J40 Bronchitis, not specified as acute or chronic (principal); I10 Essential (primary) hypertension; F17.200 Nicotine dependence, unspecified, uncomplicated; Z79.51 Long term (current) use of inhaled steroids

== ENCOUNTER → 2021-01-09 | Outpatient (CLI) | payer OTHER ==
[~2021-01-09] MED LIST changes: +ALBU8.5H PO; +AMLO1TAB25 PO; +CETI10CA2 PO; +CHLO125TA PO; +CIPR500T39 PO; +FLON1SPR NARES; +FLUO10CA18 PO; +METO1TAB7 PO
[2021-01-10 06:56] LABS: APPEARANCE, URINE CLEAR (CLEAR); BACTERIA, URINE AUTO NEGATIVE (NEGATIVE); BILIRUBIN, URINE AUTO NEGATIVE (NEGATIVE); BLOOD, URINE BLOOD NEGATIVE (NEGATIVE); COLOR, URINE YELLOW (YELLOW); GLUCOSE, URINE (UA) AUTO NEGATIVE (NEGATIVE); KETONE, URINE AUTO NEGATIVE (NEGATIVE); LEUKOCYTE ESTERASE, URINE AUTO NEGATIVE (NEGATIVE); NITRITE, URINE AUTO NEGATIVE (NEGATIVE); PROTEIN, URINE AUTO NEGATIVE (NEGATIVE); RBC, URINE AUTO 0 /HPF (0-3); SPECIFIC GRAVITY URINE AUTO 1.023 (1.002-1.035); SQUAMOUS EPITHELIAL CELL UR AU 0 /HPF (0-6); UROBILINOGEN, URINE AUTO 0.2 mg/dL (0.0-2.0); WBC, URINE AUTO 0 /HPF (0-3)
== END ==
LOC: M RAD 17:04
PROVIDERS: ATTEND Physician Assistant Medical
DX: R10.30 Lower abdominal pain, unspecified (principal)

== ENCOUNTER 2021-01-13 19:31 | Emergency (ER) | payer OTHER ==
[~2021-01-13] VITALS: Ht 177.8 cm; Wt 130.2 kg
[~2021-01-13 19:31] MED LIST changes: -AMLO1TAB25 PO; -CHLO125TA PO; -CIPR500T39 PO; -FLUO10CA18 PO; -METO1TAB7 PO
[2021-01-13] MEDS ORDERED: CHLO125TA PO (20:04)
[2021-01-13] MEDS ORDERED: CIPR500T39 PO (20:04)
[2021-01-13] MEDS ORDERED: FLUO10CA18 PO (20:04)
[2021-01-13] MEDS ORDERED: METO1TAB7 PO (20:04)
[2021-01-13 22:54] LABS: BASO # 0.1 10^3/uL (0.0-0.2); BASO % 0.5 % (0.0-1.0); EOS # 0.2 10^3/uL (0.0-0.5); EOS % 1.2 % (0.0-3.0); HEMATOCRIT 44.9 % (42.0-52.0); HEMOGLOBIN 15.4 g/dl (13.5-17.5); LYMPH # 3.6 10^3/uL (1.5-5.0); LYMPH % 23.3 % (24.0-44.0); MEAN CORPUSCULAR HEMOGLOBIN 28.4 pg (27.0-33.0); MEAN CORPUSCULAR HGB CONC 34.3 g/dl (32.0-36.5); MEAN CORPUSCULAR VOLUME 82.7 fl (80.0-96.0); MONO # 1.2 10^3/uL (0.0-0.8); MONO % 7.5 % (2.0-8.0); NEUTROPHILS # 10.4 10^3/uL (1.5-8.5); NEUTROPHILS % 67.2 % (36.0-66.0); PLATELET COUNT, AUTOMATED 350 10^3/uL (150-450); RED BLOOD COUNT 5.43 10^6/uL (4.30-6.10); WHITE BLOOD COUNT 15.5 10^3/uL (4.0-10.0)
[2021-01-13 22:56] LABS: APPEARANCE, URINE CLEAR (CLEAR); BACTERIA, URINE AUTO NEGATIVE (NEGATIVE); BILIRUBIN, URINE AUTO NEGATIVE (NEGATIVE); BLOOD, URINE BLOOD NEGATIVE (NEGATIVE); COLOR, URINE YELLOW (YELLOW); GLUCOSE, URINE (UA) AUTO NEGATIVE (NEGATIVE); KETONE, URINE AUTO NEGATIVE (NEGATIVE); LEUKOCYTE ESTERASE, URINE AUTO NEGATIVE (NEGATIVE); MUCUS, URINE SMALL (NEGATIVE); NITRITE, URINE AUTO NEGATIVE (NEGATIVE); PROTEIN, URINE AUTO NEGATIVE (NEGATIVE); RBC, URINE AUTO 1 /HPF (0-3); SPECIFIC GRAVITY URINE AUTO 1.013 (1.002-1.035); SQUAMOUS EPITHELIAL CELL UR AU 0 /HPF (0-6); UROBILINOGEN, URINE AUTO 0.2 mg/dL (0.0-2.0); WBC, URINE AUTO 0 /HPF (0-3)
[2021-01-13 23:29] LABS: ALBUMIN 4.2 GM/DL (3.2-5.2); ALT/SGPT 41 U/L (12-78); BILIRUBIN,DIRECT 0.2 MG/DL (0.0-0.2); BILIRUBIN,TOTAL 0.7 MG/DL (0.2-1.0); BLOOD UREA NITROGEN 14 MG/DL (7-18); CARBON DIOXIDE LEVEL 30 MEQ/L (21-32); CHLORIDE LEVEL 97 MEQ/L (98-107); CREATININE FOR GFR 0.86 MG/DL (0.70-1.30); GLOMERULAR FILTRATION RATE > 60.0 (>60); GLUCOSE, FASTING 104 MG/DL (70-100); LIPASE 114 U/L (73-393); POTASSIUM SERUM 3.2 MEQ/L (3.5-5.1); SODIUM LEVEL 136 MEQ/L (136-145); TOTAL PROTEIN 8.1 GM/DL (6.4-8.2)
[2021-01-14 00:04] VITALS: BP 144/94
== END 2021-01-14 03:45 | disposition left against medical advice (07) ==
LOC: M ED 19:31
DX: Z53.21 Procedure and treatment not carried out due to patient leaving prior to being seen by health care provider (principal)

== ENCOUNTER → 2021-02-02 | Outpatient (CLI) | payer OTHER ==
[~2021-02-02] MED LIST changes: +CHLO125TA PO; +CIPR500T39 PO; +FLUO10CA16 PO; +METO1TAB7 PO
[2021-02-02 14:23] LABS: BASO # 0.1 10^3/uL (0.0-0.2); BASO % 0.5 % (0.0-1.0); EOS # 0.3 10^3/uL (0.0-0.5); EOS % 2.4 % (0.0-3.0); HEMATOCRIT 44.5 % (42.0-52.0); HEMOGLOBIN 15.1 g/dl (13.5-17.5); LYMPH # 2.4 10^3/uL (1.5-5.0); LYMPH % 20.6 % (24.0-44.0); MEAN CORPUSCULAR HEMOGLOBIN 28.5 pg (27.0-33.0); MEAN CORPUSCULAR HGB CONC 33.9 g/dl (32.0-36.5); MONO # 0.9 10^3/uL (0.0-0.8); MONO % 7.9 % (2.0-8.0); NEUTROPHILS # 7.9 10^3/uL (1.5-8.5); NEUTROPHILS % 68.1 % (36.0-66.0); PLATELET COUNT, AUTOMATED 340 10^3/uL (150-450); WHITE BLOOD COUNT 11.6 10^3/uL (4.0-10.0)
[2021-02-02 14:33] LABS: HEMOGLOBIN A1c 5.8 %
[2021-02-02 14:52] LABS: APPEARANCE, URINE CLEAR (CLEAR); BACTERIA, URINE AUTO NEGATIVE (NEGATIVE); BILIRUBIN, URINE AUTO NEGATIVE (NEGATIVE); BLOOD, URINE BLOOD NEGATIVE (NEGATIVE); COLOR, URINE YELLOW (YELLOW); GLUCOSE, URINE (UA) AUTO NEGATIVE (NEGATIVE); KETONE, URINE AUTO NEGATIVE (NEGATIVE); LEUKOCYTE ESTERASE, URINE AUTO NEGATIVE (NEGATIVE); MUCUS, URINE SMALL (NEGATIVE); NITRITE, URINE AUTO NEGATIVE (NEGATIVE); PROTEIN, URINE AUTO 1+ mg/dL (NEGATIVE); RBC, URINE AUTO 0 /HPF (0-3); SPECIFIC GRAVITY URINE AUTO 1.028 (1.002-1.035); SQUAMOUS EPITHELIAL CELL UR AU 0 /HPF (0-6); WBC, URINE AUTO 1 /HPF (0-3)
[2021-02-02 15:22] LABS: ALBUMIN 3.9 GM/DL (3.2-5.2); ALT/SGPT 47 U/L (12-78); BILIRUBIN,TOTAL 0.7 MG/DL (0.2-1.0); BLOOD UREA NITROGEN 13 MG/DL (7-18); C REACTIVE PROTEIN QUANTITATIV 1.15 MG/DL (0.00-0.30); CALCIUM LEVEL 9.3 MG/DL (8.5-10.1); CARBON DIOXIDE LEVEL 33 MEQ/L (21-32); CHLORIDE LEVEL 99 MEQ/L (98-107); CHOLESTEROL LEVEL 197 MG/DL (<200); CREATININE FOR GFR 0.92 MG/DL (0.70-1.30); GLOMERULAR FILTRATION RATE > 60.0 (>60); GLUCOSE, FASTING 118 MG/DL (70-100); HDL CHOLESTEROL 42 MG/DL (>40); LDL CHOLESTEROL 97 MG/DL (<100); NON-HDL-C 155 MG/DL; POTASSIUM SERUM 2.8 MEQ/L (3.5-5.1); SODIUM LEVEL 139 MEQ/L (136-145); TOTAL PROTEIN 7.8 GM/DL (6.4-8.2); TRIGLYCERIDES LEVEL 292 MG/DL (<150)
[2021-02-03 23:10] LABS: PSA TOTAL 1.5 ng/mL (0.0-4.0)
== END ==
LOC: M PLALAB 11:29
PROVIDERS: ATTEND Nurse Practitioner Family
DX: R10.30 Lower abdominal pain, unspecified (principal)

== ENCOUNTER → 2021-02-04 | Outpatient (CLI) | payer OTHER ==
[2021-02-04 18:41] LABS: BASO # 0.1 10^3/uL (0.0-0.2); BASO % 0.5 % (0.0-1.0); EOS # 0.4 10^3/uL (0.0-0.5); EOS % 3.6 % (0.0-3.0); HEMATOCRIT 44.4 % (42.0-52.0); HEMOGLOBIN 14.7 g/dl (13.5-17.5); LYMPH # 3.8 10^3/uL (1.5-5.0); LYMPH % 35.2 % (24.0-44.0); MEAN CORPUSCULAR HEMOGLOBIN 28.1 pg (27.0-33.0); MEAN CORPUSCULAR HGB CONC 33.1 g/dl (32.0-36.5); MEAN CORPUSCULAR VOLUME 84.7 fl (80.0-96.0); MONO # 0.7 10^3/uL (0.0-0.8); MONO % 6.9 % (2.0-8.0); NEUTROPHILS # 5.8 10^3/uL (1.5-8.5); NEUTROPHILS % 53.4 % (36.0-66.0); PLATELET COUNT, AUTOMATED 345 10^3/uL (150-450); RED BLOOD COUNT 5.24 10^6/uL (4.30-6.10); WHITE BLOOD COUNT 10.8 10^3/uL (4.0-10.0)
[2021-02-04 19:07] LABS: BLOOD UREA NITROGEN 15 MG/DL (7-18); C REACTIVE PROTEIN QUANTITATIV 1.27 MG/DL (0.00-0.30); CARBON DIOXIDE LEVEL 35 MEQ/L (21-32); CHLORIDE LEVEL 98 MEQ/L (98-107); CREATININE FOR GFR 0.88 MG/DL (0.70-1.30); GLOMERULAR FILTRATION RATE > 60.0 (>60); GLUCOSE, FASTING 123 MG/DL (70-100); PHOSPHORUS LEVEL 2.7 MG/DL (2.5-4.9); POTASSIUM SERUM 3.2 MEQ/L (3.5-5.1); SODIUM LEVEL 140 MEQ/L (136-145)
== END ==
LOC: M PLALAB 15:40
PROVIDERS: ATTEND Nurse Practitioner Family
DX: E87.6 Hypokalemia (principal); I10 Essential (primary) hypertension

== ENCOUNTER → 2021-02-15 | Outpatient (REF) | payer OTHER ==
[2021-02-15 18:04] LABS: AMORPHOUS SEDIMENT LARGE (NEGATIVE); APPEARANCE, URINE TURBID (CLEAR); BACTERIA, URINE AUTO NEGATIVE (NEGATIVE); BILIRUBIN, URINE AUTO NEGATIVE (NEGATIVE); BLOOD, URINE BLOOD NEGATIVE (NEGATIVE); COLOR, URINE AMBER (YELLOW); GLUCOSE, URINE (UA) AUTO NEGATIVE (NEGATIVE); KETONE, URINE AUTO NEGATIVE (NEGATIVE); LEUKOCYTE ESTERASE, URINE AUTO NEGATIVE (NEGATIVE); MUCUS, URINE SMALL (NEGATIVE); NITRITE, URINE AUTO NEGATIVE (NEGATIVE); PROTEIN, URINE AUTO 1+ mg/dL (NEGATIVE); RBC, URINE AUTO 2 /HPF (0-3); SPECIFIC GRAVITY URINE AUTO 1.027 (1.002-1.035); SQUAMOUS EPITHELIAL CELL UR AU 0 /HPF (0-6); UROBILINOGEN, URINE AUTO 0.2 mg/dL (0.0-2.0); WBC, URINE AUTO 3 /HPF (0-3)
== END ==
LOC: M LAB REF 17:48
PROVIDERS: ATTEND Physician Assistant Medical
DX: R30.0 Dysuria (principal)

== ENCOUNTER → 2021-02-19 | Outpatient (CLI) | payer OTHER ==
[2021-02-19 18:00] LABS: BLOOD UREA NITROGEN 13 MG/DL (7-18); CALCIUM LEVEL 9.1 MG/DL (8.5-10.1); CARBON DIOXIDE LEVEL 30 MEQ/L (21-32); CHLORIDE LEVEL 105 MEQ/L (98-107); CREATININE FOR GFR 0.72 MG/DL (0.70-1.30); GLOMERULAR FILTRATION RATE > 60.0 (>60); GLUCOSE, FASTING 94 MG/DL (70-100); SODIUM LEVEL 140 MEQ/L (136-145)
== END ==
LOC: M PLALAB 15:17
PROVIDERS: ATTEND Nurse Practitioner Family
DX: I10 Essential (primary) hypertension (principal)

== ENCOUNTER → 2021-02-27 | Outpatient (CLI) | payer OTHER ==
--- NOTE | 2021-02-27 10:20 | REP ---
INDICATION: HTN COMPARISON: None TECHNIQUE: Real time adler scale ultrasound examination using curved array transducer followed by color Doppler evaluation of the renal vasculature. FINDINGS: The bilateral kidneys are normal in contour, size, echogenicity, and reniform shape. Incidental 8 mm left renal cyst noted. Right kidney measures 13.6 x 6.4 x 5.8 cm. Left kidney measures 13.3 x 7.0 x 6.5 cm. Bladder is unremarkable. Color Doppler evaluation. Peak aortic velocity: 91.2 centimeters/second RIGHT KIDNEY Renal arterial velocity: 85.8 centimeters/second Renal-aortic ratio: 0.94 Intrarenal resistive indices: 0.59-0.63 Intrarenal acceleration times: 0.028-0.046 Incidental duplicated right main renal artery noted. LEFT KIDNEY Renal arterial velocity: 80.7 centimeters/second Renal-aortic ratio: 0.88 Intrarenal resistive indices: 0.64 Intrarenal acceleration times: 0.032-0.038 IMPRESSION: 1. Kidneys appear normal. 2. Doppler interegation without sonographic evidence for renal arterial stenosis. <Electronically signed by Yosi Owens > 02/27/21 [id number]
== END ==
LOC: M RAD 09:22
PROVIDERS: ATTEND Nurse Practitioner Family
DX: I10 Essential (primary) hypertension (principal)

== ENCOUNTER 2021-05-07 20:22 | Emergency (ER) | payer OTHER ==
[~2021-05-07] VITALS: Ht 177.8 cm; Wt 136.6 kg
[2021-05-07] MEDS ORDERED: AMLO1TAB25 PO (20:32)
[2021-05-08] MEDS: ACETAMINOPHEN 500 MG TAB PO ONE (08:35)
[2021-05-08] MEDS: guaiFENesin ER 600 MG TAB PO ONE (08:36)
[2021-05-08] MEDS: KETOROLAC 30 MG/ML 1ML VIAL IV ONE (08:36)
[2021-05-08] MEDS: NS 1,000 ML IV ONE (08:39)
[2021-05-08 10:10] VITALS: BP 146/74
== END 2021-05-08 10:10 | disposition home or self-care (01) ==
LOC: M ED 20:22
DX: R51.9 Headache, unspecified (principal); Z79.899 Other long term (current) drug therapy
CPT/HCPCS: 80047; 96361; 96374; 99284; J1885

== ENCOUNTER 2022-08-07 17:55 | Emergency (ER) | payer OTHER ==
[~2022-08-07] VITALS: Ht 177.8 cm; Wt 134.4 kg
[~2022-08-07 17:55] MED LIST changes: +AMLO1TAB25 PO; -FLUO10CA16 PO; +FLUO10CA18 PO
[2022-08-07 18:40] LABS: BASO % 0.4 % (0.0-1.0); EOS # 0.2 10^3/uL (0.0-0.5); EOS % 2.1 % (0.0-3.0); HEMOGLOBIN 14.7 g/dl (13.5-17.5); LYMPH # 3.4 10^3/uL (1.5-5.0); MEAN CORPUSCULAR HEMOGLOBIN 27.2 pg (27.0-33.0); MEAN CORPUSCULAR HGB CONC 32.7 g/dl (32.0-36.5); MEAN CORPUSCULAR VOLUME 83.3 fl (80.0-96.0); MONO # 0.7 10^3/uL (0.0-0.8); MONO % 6.7 % (2.0-8.0); NEUTROPHILS # 6.2 10^3/uL (1.5-8.5); NEUTROPHILS % 58.3 % (36.0-66.0); PLATELET COUNT, AUTOMATED 384 10^3/uL (150-450); WHITE BLOOD COUNT 10.6 10^3/uL (4.0-10.0)
[2022-08-07 18:57] LABS: LIPASE 45 U/L (12-53)
[2022-08-07 18:59] LABS: CPK CREATINE PHOSPHOKINASE 144 U/L (46-171)
[2022-08-07 19:00] LABS: ALBUMIN 3.9 G/DL (3.2-5.2); ALKALINE PHOSPHATASE 147 U/L (46-116); ALT/SGPT 26 U/L (7.0-40); AST/SGOT 21 U/L (<34); BILIRUBIN,DIRECT 0.2 MG/DL (<0.4); BILIRUBIN,TOTAL 0.8 MG/DL (0.3-1.2); BLOOD UREA NITROGEN 14 MG/DL (9-23); CALCIUM LEVEL 9.5 MG/DL (8.5-10.1); CARBON DIOXIDE LEVEL 29 MMOL/L (20-31); CHLORIDE LEVEL 102 MMOL/L (98-107); CK-MB VALUE MASS < 1.0 NG/ML (<3.6); CREATININE FOR GFR 0.88 MG/DL (0.70-1.30); GLOMERULAR FILTRATION RATE > 60.0 (>60); GLUCOSE, FASTING 114 MG/DL (60-100); MB/CK RELATIVE INDEX 0.69 (< OR =4); POTASSIUM SERUM 3.6 MMOL/L (3.5-5.1); SODIUM LEVEL 140 MMOL/L (136-145); TOTAL PROTEIN 7.6 G/DL (5.7-8.2)
[2022-08-07] MEDS ORDERED: GI COCKTAIL 50ML BTL(HYOSCYAMINE/MAALOX/LIDOCAINE VISCOUS)(1:3:1) PO ONE (19:35)
[2022-08-07] MEDS ORDERED: OMEP40CA4 PO (20:59)
[2022-08-07] MEDS ORDERED: AMLO25TA PO (20:59)
[2022-08-07] MEDS ORDERED: METO1TAB7 PO (20:59)
[2022-08-07 21:32] VITALS: BP 145/91
== END 2022-08-07 21:46 | disposition home or self-care (01) ==
LOC: M ED 17:55
DX: K21.9 Gastro-esophageal reflux disease without esophagitis (principal); R00.0 Tachycardia, unspecified; Z79.83 Long term (current) use of bisphosphonates; Z79.891 Long term (current) use of opiate analgesic; Z79.899 Other long term (current) drug therapy

== ENCOUNTER 2022-08-18 12:08 | Emergency (ER) | payer OTHER ==
[~2022-08-18] VITALS: Ht 177.8 cm; Wt 134.0 kg
[2022-08-18 12:08] VITALS: BP 173/96
[~2022-08-18 12:08] MED LIST changes: +AMLO25TA PO; +OMEP40CA4 PO
== END 2022-08-18 14:39 | disposition left against medical advice (07) ==
LOC: M ED 12:08
DX: Z53.21 Procedure and treatment not carried out due to patient leaving prior to being seen by health care provider (principal)